=== PATIENT | male | born 1945 | race Caucasian/White ===

== ENCOUNTER 2016-06-20 06:41 | Inpatient (IN) | payer MEDICARE ==
[2016-06-20] VITALS (33 sets, daily range): BP systolic 119–156; BP diastolic 71–114; PULSE 80–116; RESP 16–20; TEMP 98.2–98.8; O2SAT 96–100
[~2016-06-20] VITALS: Ht 188 cm; Wt 121.9 kg
[~2016-06-20 06:41] MED LIST: ACET325S8 PO; AMLO10 PO; ASPI81TA82 PO; ATOR20TA PO; BUPR100T PO; GLIM4 PO; GLUC1000 PO; HYDR25TA35 PO; ISOS60TA PO; METO25 PO; NOVONP2 SQ; PAXI20TA26 PO; PLAV75TA PO; PRIN20TA2 PO
[2016-06-20] MEDS ORDERED: SODIUM CHLOR 0.9% 1000 ML INJ 1,000 ML IV ONE (06:57)
--- NOTE | 2016-06-20 07:11 | PD ---
HPI Chief Complaint: cva Time Seen by Provider: 06:57 Travel History International Travel<30 days: No Contact w/Intl Traveler<30days: No Traveled to known affect area: No History of Present Illness HPI 70 year-old male presents to the emergency department by private transportation the care of his spouse for evaluation of new onset ataxia and vision disturbance. According to the patient he awakened around 5 or 5:30 this morning upon getting out of bed and noticed that his balance was off. Patient is able to walk to get his newspaper and sit down and drink coffee and notices balance was still off and then started to notice that he was having difficulty reading the newspaper. Patient states that he went to bed approximately 7 PM last evening watching TV and fell sleep sometime thereafter. Patient states that he does have issues with his prostate and does frequent to get up during the night does not recall specifically any time frame that he was awake and noticed that he did or did not have similar symptoms. Patient therefore to his knowledge was last normal at 7 PM and appears to be noticing gait disturbance and some visual disturbance as of 5 to 5:30 this morning. states that she sleeps in another J[place] was not aware of him having any kind of issues with his balance until this morning around 5 or 5:30. Patient does have history of hypertension CAD with stent placement is under the care of Dr. Rosas as his aquarist and typed 2 diabetes. Patient does not take any blood thinning agents. No prior history of an irregular heartbeat. No recent injury or fall. No recent febrile illness. Patient denies any chest pain or shortness of breath. There is been no nausea or vomiting. Patient denies any loss of vision or double vision. has not noticed any change in his mentation no facial droop no change in his speech. [facility] Past Medical History Narrative Medical Diabetes, dyslipidemia, hypertension, glaucoma, BPH, alcohol use, no tobacco use , nursing notes reviewed High Cholesterol: Yes Diabetes: Yes ("TYPE 2") Glaucoma: Yes Genitourinary: Yes ("PROSTATE") Hypertension: Yes Respiratory: Yes Past Surgical History Eye Surgery: Yes (CATARACT SURGERY OU) Social History Alcohol Use: Yes (6 pack of beer/week) Tobacco Use: No (quit 1996 after 30 yrs of smoking) Substance Use: No Allergies-Medications (Allergen,Severity, Reaction): Coded Allergies: No Known Allergies (Verified , 06/20/16) Reported Meds & Prescriptions Reported Meds & Active Scripts Active Reported Metoprolol Tartrate 25 Mg Tab 25 Mg PO BID Metformin (Metformin HCl) 500 Mg Tab 1,000 Mg PO BID With a meal Lisinopril 20 Mg Tab 20 Mg PO BID Isosorbide Mononitrate ER (Isosorbide Mononitrate) 60 Mg Tab 60 Mg PO DAILY Novolin N Inj (Insulin Human NPH) 1,000 Unit/10 Ml Vial 40 Units SQ BID Hydralazine (Hydralazine HCl) 25 Mg Tab 25 Mg PO TID Take with a meal Bupropion HCl 100 Mg Tab 100 Mg PO DAILY Atorvastatin (Atorvastatin Calcium) 20 Mg Tab Unknown Dose PO HS Aspirin 81 Mg Tabdr 81 Mg PO DAILY Norvasc (Amlodipine Besylate) 10 Mg Tab 10 Mg PO DAILY Review of Systems Except as stated in HPI: all other systems reviewed are Neg General / Constitutional: No: Fever Eyes: Positive: Blurred Vision, No: Diploplia, Photophobia HENT: No: Headaches, Vertigo, Lightheadedness Cardiovascular: No: Chest Pain or Discomfort, Palpitations, Diaphoresis Respiratory: No: Shortness of Breath Gastrointestinal: No: Nausea, Vomiting, Abdominal Pain Genitourinary: No: Decreased Urinary Output, Flank Pain Musculoskeletal: No: Myalgias, Arthralgias Skin: No Rash Neurologic: Positive: Ataxia, No: Weakness, Dizziness, Syncope, Focal Abnormalities, Coordination Problem, Headache, Change in Mentation, Slurred Speech, Paresthesia Psychiatric: No: Anxiety Hematologic/Lymphatic: No: Lymph Node Enlargement Physical Exam Narrative GENERAL: Well-developed well-nourished male in no acute distress no respiratory distress. GCS 15. SKIN: Warm and dry. HEAD: Atraumatic. Normocephalic. EYES: Pupils equal and round. No scleral icterus. No injection or drainage. ENT: No nasal bleeding or discharge. Mucous membranes pink and moist. NECK: Trachea midline. No JVD. CARDIOVASCULAR: Regular rate and rhythm. RESPIRATORY: No accessory muscle use. Clear to auscultation. Breath sounds equal bilaterally. GASTROINTESTINAL: Abdomen soft, non-tender, nondistended. Hepatic and splenic margins not palpable. MUSCULOSKELETAL: Extremities without clubbing, cyanosis, or edema. No obvious deformities. NEUROLOGICAL: Awake and alert. No obvious cranial nerve deficits. Motor grossly within normal limits. Five out of 5 muscle strength in the arms and legs. No pronator drift. No limb ataxia. Sensory exam grossly intact. DTRs 2 + and equal. Normal speech. PSYCHIATRIC: Appropriate mood and affect; insight and judgment normal. Data Data Last Documented VS Vital Signs Date Time Temp Pulse Resp B/P Pulse Ox O2 Delivery O2 Flow Rate FiO2 06/20/16 07:10 98.8 115 16 155/94 98 Room Air 06/20/16 07:03 21 Orders Cath For Specimen (06/20/16 06:57) Neuro Checks Q2HX12,Q4H (06/20/16 06:57) Nursing Bedside Swallow Assess .ONCE (06/20/16 06:57) Activity Bed Rest (06/20/16 06:57) Diet Npo (06/20/16 Breakfast) Prothrombin Time / Inr (Pt) (06/20/16 06:57) Act Partial Throm Time (Ptt) (06/20/16 06:57) Complete Blood Count With Diff (06/20/16 06:57) Basic Metabolic Panel (Bmp) (06/20/16 06:57) Fibrinogen (06/20/16 06:57) Creatine Kinase (Cpk) (06/20/16 06:57) Troponin I (06/20/16 06:57) Ua Includes Microscopic (06/20/16 06:57) Drug Screen, Random Urine (06/20/16 06:57) Type And Screen (06/20/16 06:57) Ct Brain W/O Iv Contrast(Rout) (06/20/16 ) Electrocardiogram (06/20/16 ) Consult Neurology (06/20/16 06:57) Sodium Chlor 0.9% 1000 Ml Inj (Ns 1000 M (06/20/16 06:57) Blood Glucose (06/20/16 06:57) Ecg Monitoring (06/20/16 06:57) Iv Access Insert/Monitor (06/20/16 06:57) NPO (06/20/16 06:57) Oximetry (06/20/16 06:57) Oxygen Administration (06/20/16 06:57) Resp Oxygen Javon C Titrat 1-4 L (06/20/16 06:57) (Hub Use Only)Inp Phy Cons/Ref (06/20/16 ) Admit Order (Ed Use Only) (06/20/16 ) Weight Inspector / Telemetry (06/20/16 07:40) ^ Saline Lock (06/20/16 07:40) Resp Oxygen Javon C Titrat 1-4 L (06/20/16 ) ^ Notify Dr: Other (06/20/16 07:40) Sodium Chloride 0.9% Flush (Ns Flush) (06/20/16 09:00) Sodium Chloride 0.9% Flush (Ns Flush) (06/20/16 07:45) Consult Cardiology (06/20/16 07:40) Consult Neurology (06/20/16 07:40) Labs Laboratory Tests Test 06/20/16 07:00 White Blood Count 10.7 TH/MM3 Red Blood Count 6.03 MIL/MM3 Hemoglobin 15.7 GM/DL Hematocrit 48.4 % Mean Corpuscular Volume 80.2 FL Mean Corpuscular Hemoglobin 26.1 PG Mean Corpuscular Hemoglobin 32.5 % Concent Red Cell Distribution Width 13.8 % Platelet Count 251 TH/MM3 Mean Platelet Volume 8.1 FL Neutrophils (%) (Auto) 73.3 % Lymphocytes (%) (Auto) 15.5 % Monocytes (%) (Auto) 8.4 % Eosinophils (%) (Auto) 2.3 % Basophils (%) (Auto) 0.5 % Neutrophils # (Auto) 7.8 TH/MM3 Lymphocytes # (Auto) 1.7 TH/MM3 Monocytes # (Auto) 0.9 TH/MM3 Eosinophils # (Auto) 0.2 TH/MM3 Basophils # (Auto) 0.1 TH/MM3 CBC Comment DIFF FINAL Differential Comment Prothrombin Time 10.8 SEC Prothromb Time International 1.0 RATIO Ratio Activated Partial 25.0 SEC Thromboplast Time Sodium Level 138 MEQ/L Potassium Level 4.3 MEQ/L Chloride Level 103 MEQ/L Carbon Dioxide Level 24.5 MEQ/L Anion Gap 11 MEQ/L Blood Urea Nitrogen 19 MG/DL Creatinine 1.10 MG/DL Estimat Glomerular Filtration 67 ML/MIN Rate Random Glucose 257 MG/DL Calcium Level 8.7 MG/DL Total Creatine Kinase 218 U/L Troponin I LESS THAN 0.02 NG/ML MDM Medical Decision Making Medical Screen Exam Complete: Yes Emergency Medical Condition: Yes Medical Record Reviewed: Yes Interpretation(s) CT brain w/o: Reading radiologist Dr. Jimenez no acute abnormality chronic white matter changes EKG atrial fibrillation with rapid ventricular response no acute ST elevation or injury pattern change noted PT/aPTT: Values in normal range CBC is automated differential: Values grossly normal range Metabolic panel: Random glucose 257 otherwise denies grossly within normal limits Troponin I: Less than 0.02 Differential Diagnosis CVA, stroke alert, new onset atrial fibrillation, uncontrolled DM Narrative Course stroke alert called; monitored afb w rvr; blood glucose 243 ;BP: hypertensive; NIHSS 0; initial blood pressure 143/114; atrial fibrillation with RVR rate [address] stat; case discussed with on-call neurologist Dr. Lozano in view of unclear onset of symptoms patient is not a candidate for thrombolytics and overall NIH score is 0-0-1. returned [address] CT nihss:1, minimal difficulty reading x [address] Jimenez ---nothing acute, chronic white matter changes Blood pressure at 7:10 AM 155/94 heart rate 1:15 Physician Communication Physician Communication discussed case with neurologist --unknown time of onset--not thrombolytic candidate @ 6:[address] Lozano--unknown onset nihss 0; not thrombolytic candidate @ 7:[address] Jimenez no acute abnormalities chronic white matter changes call placed to [facility] MD microsoft bi consultant @ 7:[address] Joyce discussed with patient's aquarist Dr Staton --requests patient to [facility] as will need MADDIE Diagnosis Primary Impression: CVA (cerebral vascular accident) Qualified Code: I63.9 - Cerebrovascular accident (CVA), unspecified mechanism Additional Impression: New onset a-fib Admitting Information Admitting Physician Requests: Admit Angela Martinez MD Jun 20, 2016 07:10
[2016-06-20 07:14] LABS: AUTOMATED NEUTROPHIL # 7.8 TH/MM3 (1.8-7.7); BASOPHIL # 0.1 TH/MM3 (0-0.2); BASOPHIL % 0.5 % (0.0-2.0); EOSINOPHIL # 0.2 TH/MM3 (0-0.4); EOSINOPHIL % 2.3 % (0.0-4.0); HEMATOCRIT 48.4 % (39.0-51.0); HEMO FLAGS DIFF FINAL; LYMPH % 15.5 % (9.0-44.0); LYMPHOCYTE # 1.7 TH/MM3 (1.0-4.8); MEAN CELL VOLUME 80.2 FL (80.0-100.0); MEAN CORPUSCULAR HEMOGLOBIN 26.1 PG (27.0-34.0); MEAN CORPUSCULAR HGB CONC 32.5 % (32.0-36.0); MONO % 8.4 % (0.0-8.0); NEUT % 73.3 % (16.0-70.0); PLATELET COUNT 251 TH/MM3 (150-450); RED BLOOD COUNT 6.03 MIL/MM3 (4.50-5.90); RED CELL DISTRIBUTION WIDTH 13.8 % (11.6-17.2); WHITE BLOOD COUNT 10.7 TH/MM3 (4.0-11.0)
--- NOTE | 2016-06-20 07:16 | RADHPO ---
EXAM DATE/TIME: 06/20/2016 06:58 [place] COMPARISON: No previous studies available for comparison. INDICATIONS : Stroke alert. Unsteady gait since waking up. RADIATION DOSE: 62.62 CTDIvol (mGy) This report was called by Dr. Jimenez to Dr. Martinez at 7: 14 AM MEDICAL HISTORY : Hypertension. Diabetes mellitus type 2. SURGICAL HISTORY : Bilateral cataract surgery. ENCOUNTER: Initial ACUITY: 1 day PAIN SCALE: 0/10 LOCATION: cranial TECHNIQUE: Multiple contiguous axial images were obtained of the head. Using automated exposure control and adj ustment of the mA and/or kV according to patient size, radiation dose was kept as low as reasonably a chievable to obtain optimal diagnostic quality images. FINDINGS: CEREBRUM: The ventricles are normal for age. No evidence of midline shift, mass lesion, hemorrhage or acute in farction. No extra-axial fluid collections are seen. POSTERIOR FOSSA: The cerebellum and brainstem are intact. The 4th ventricle is midline. The cerebellopontine angle i s unremarkable. EXTRACRANIAL: The visualized portion of the orbits is intact. SKULL: The calvaria is intact. No evidence of skull fracture. CONCLUSION: 1. No acute findings. Chronic white matter ischemic changes. Norbert Jimenez MD on June 20, 2016 at 7:10 Board Certified Radiologist. This report was verified electronically.
[2016-06-20 07:18] LABS: CHLORIDE 103 MEQ/L (98-107); POTASSIUM 4.3 MEQ/L (3.5-5.1); SODIUM (NA) 138 MEQ/L (136-145)
[2016-06-20 07:21] LABS: ANION GAP 11 MEQ/L (5-15); BICARBONATE 24.5 MEQ/L (21.0-32.0)
[2016-06-20 07:22] LABS: BLOOD UREA NITROGEN 19 MG/DL (7-18); PROTHROMBIN TIME - PATIENT 10.8 SEC (9.8-11.6)
[2016-06-20 07:25] LABS: GLOMERULAR FILTRATION RATE 67 ML/MIN (>89)
[2016-06-20 07:28] LABS: CREATINE KINASE 218 U/L (39-308)
[2016-06-20] MEDS ORDERED: SODIUM CHLORIDE 0.9% FLUSH 5 ML FLUSH IVF PRN ×2 (07:45→08:00)
[2016-06-20] MEDS ORDERED: BUPR100T4 PO (07:48)
[2016-06-20] MEDS ORDERED: LISI-515 PO (07:48)
[2016-06-20] MEDS ORDERED: HYDR25TA35 PO (07:48)
[2016-06-20] MEDS ORDERED: AMLO10 PO (07:48)
[2016-06-20] MEDS ORDERED: ASPI1TAB69 PO (07:48)
[2016-06-20] MEDS ORDERED: NOVONP2 SQ (07:48)
[2016-06-20] MEDS ORDERED: METO25TA3 PO (07:48)
[2016-06-20] MEDS ORDERED: ISOS60TA PO (07:48)
[2016-06-20] MEDS ORDERED: ATOR20TA15 PO (07:48)
[2016-06-20] MEDS ORDERED: METF500T PO (07:48)
[2016-06-20] MEDS ORDERED: DILTIAZEM HCL 25 MG/5 ML VIAL IV PUSH ONE (08:00)
[2016-06-20 08:08] LABS: BLOOD, URINE NEG (NEG); KETONE, URINE NEG (NEG); NITRITE,URINE NEG (NEG); PH, URINE 6.5 (5.0-8.5)
[2016-06-20] MEDS: DILTIAZEM INJ 125 MG in SODIUM CHLORIDE 0.9% INJ 100 ML IV SCH ×2 (08:13→19:42)
[2016-06-20 08:24] LABS: GLUCOSE,URINE 1000 OR GREATER mg/dL (NEG)
[2016-06-20 08:25] LABS: URINE COLOR YELLOW (YELLW/STRAW)
[2016-06-20 08:26] LABS: BACTERIA, URINE RARE /hpf; MUCUS URINE FEW /lpf (OCC); SQUAMOUS EPITHELIAL CELL URINE 0-2 /hpf (0-5)
[2016-06-20 08:27] LABS: AMPHETAMINE, URINE NEG (NEG); BARBITURATES, URINE NEG (NEG)
[2016-06-20 08:31] LABS: COCAINE, URINE NEG (NEG)
[2016-06-20] MEDS: METOPROLOL TARTRATE 25 MG TAB PO SCH ×2 (09:00→23:10)
[2016-06-20] MEDS: SODIUM CHLORIDE 0.9% FLUSH 5 ML FLUSH IVF SCH ×2 (09:00→23:11)
[2016-06-20] MEDS: hydrALAZINE HCL 25 MG TAB PO SCH ×3 (09:00→18:00)
[2016-06-20] MEDS: INSULIN HUMAN NPH 1,000 UNITS/10 ML VIAL SQ SCH ×2 (09:00→23:17)
[2016-06-20] MEDS: LISINOPRIL 20 MG TAB PO SCH ×2 (09:00→23:10)
[2016-06-20] MEDS: ISOSORBIDE MONONITRATE 60 MG TAB PO SCH (09:00)
--- NOTE | 2016-06-20 09:33 | EKG ---
Date Performed: 06/20/2016 Time Performed: 07:13:40 PTAGE: 70 years EKG: Atrial fibrillation with rapid ventricular response Inferior infarct - age undetermined Abn ormal ECG PREVIOUS TRACING : 03/19/2015 06.54 Compared to previous tracing, atrial fibrillation has repla juanita Sinus rhythm . DOCTOR: Jose Piña Interpretating Date/Time 06/20/2016 09:31:10
[2016-06-20] MEDS: buPROPion HCL 100 MG TAB PO SCH (09:44)
[2016-06-20] MEDS: metFORMIN HCL 500 MG TAB PO SCH ×2 (09:44→21:00)
[2016-06-20] MEDS: ASPIRIN EC 81 MG TABEC PO SCH (09:44)
[2016-06-20] MEDS: ATORVASTATIN 20 MG TAB PO SCH (09:44)
--- NOTE | 2016-06-20 10:31 | HHI.HP ---
HPI Service [facility] Hospitalists Primary Care Physician Alli Boston MD Admission Diagnosis cva; new onset afrvr Chief Complaint: ataxia with visual disturbance around 5 am Travel History International Travel<30 Days: No Contact w/Intl Traveler <30 Da: No Traveled to Known Affected Are: No History of Present Illness 70 year-old male presented to the emergency department by private transportation the care of his spouse for evaluation of new onset ataxia and vision disturbance. According to the patient he awakened around 5 or 5:30 this morning upon getting out of bed and noticed that his balance was off. Patient is able to walk to get his newspaper and sit down and drink coffee and notices balance was still off and then started to notice that he was having difficulty reading the newspaper. Patient states that he went to bed approximately 7 PM last evening watching TV and fell sleep sometime thereafter. Patient states that he does have issues with his prostate and does frequent to get up during the night does not recall specifically any time frame that he was awake and noticed that he did or did not have similar symptoms. Patient therefore to his knowledge was last normal at 7 PM and appears to be noticing gait disturbance and some visual disturbance as of 5 to 5:30 this morning. states that she sleeps in another room was not aware of him having any kind of issues with his balance until this morning around 5 or 5:30. Patient does have history of hypertension CAD with stent placement is under the care of Dr. Rosas as his slab inspector and typed 2 diabetes. Patient does not take any blood thinning agents except aspirin . No prior history of an irregular heartbeat. No recent injury or fall. No recent febrile illness. Patient denies any chest pain or shortness of breath. There is been no nausea or vomiting. Patient denies any loss of vision or double vision. has not noticed any change in his mentation no facial droop no change in his speech. On er evaluation was found to be in atrial fib with rapid ventricular response and started on cardiazem drip. Patient has lens implants and unable to do MRI neurology want CTA and cardiology wants MADDIE . Review of Systems Cardiovascular: COMPLAINS OF: Palpitations Past Family Social History Past Medical History CAD s/p stents ,insulin dependent diabetes,hyperlipidemia,BPH,glaucoma Past Surgical History stent,cataract Reported Medications nph 70/30 40 units bid metformin 1000 bid metoprolol 25 bid,lisinopril 20 bid, isordil 60,hydralazine 25 tid,bupropion 100 lipitor 20 asa 81 norvasc 10 Allergies: Coded Allergies: No Known Allergies (Verified , 06/20/16) Social History drinks 6 pack q week,former smoker Physical Exam Vital Signs Vital Signs Date Time Temp Pulse Resp B/P Pulse Ox O2 Delivery O2 Flow Rate FiO2 06/20/16 09:20 97 21 06/20/16 09:19 93 16 156/76 97 Room Air 06/20/16 08:49 93 16 148/95 97 Room Air 06/20/16 08:30 103 16 132/89 98 Room Air 06/20/16 08:10 116 16 150/82 98 Room Air 06/20/16 07:35 108 16 154/87 98 Room Air 06/20/16 07:10 98.8 115 16 155/94 98 Room Air 06/20/16 07:10 115 16 98 Room Air 06/20/16 07:10 16 98 Room Air 06/20/16 07:10 98 Room Air 06/20/16 07:03 97 21 06/20/16 07:03 97 21 06/20/16 06:50 116 20 143/114 96 Physical Exam GENERAL: This is a well-nourished, well-developed patient, in no apparent distress. SKIN: No rashes, ecchymoses or lesions. Cool and dry. HEAD: Atraumatic. Normocephalic. No temporal or scalp tenderness. EYES: Pupils equal round and reactive. Extraocular motions intact. No scleral icterus. No injection or drainage. ENT: Nose without bleeding, purulent drainage or septal hematoma. Throat without erythema, tonsillar hypertrophy or exudate. Uvula midline. Airway patent. NECK: Trachea midline. No JVD or lymphadenopathy. Supple, nontender, no meningeal signs. CARDIOVASCULAR: Regular rate and rhythm without murmurs, gallops, or rubs. RESPIRATORY: Clear to auscultation. Breath sounds equal bilaterally. No wheezes , rales, or rhonchi. GASTROINTESTINAL: Abdomen soft, non-tender, nondistended. No hepato-splenomegaly , or palpable masses. No guarding. MUSCULOSKELETAL: Extremities without clubbing, cyanosis, or edema. No joint tenderness, effusion, or edema noted. No calf tenderness. Negative Homans sign bilaterally. NEUROLOGICAL: Awake and alert. Cranial nerves II through XII intact. Motor and sensory grossly within normal limits. Five out of 5 muscle strength in all muscle groups. Normal speech. Improved from er evaluation this am. Laboratory Laboratory Tests Test 06/20/16 06/20/16 07:00 08:00 White Blood Count 10.7 Red Blood Count 6.03 Hemoglobin 15.7 Hematocrit 48.4 Mean Corpuscular Volume 80.2 Mean Corpuscular Hemoglobin 26.1 Mean Corpuscular Hemoglobin 32.5 Concent Red Cell Distribution Width 13.8 Platelet Count 251 Mean Platelet Volume 8.1 Neutrophils (%) (Auto) 73.3 Lymphocytes (%) (Auto) 15.5 Monocytes (%) (Auto) 8.4 Eosinophils (%) (Auto) 2.3 Basophils (%) (Auto) 0.5 Neutrophils # (Auto) 7.8 Lymphocytes # (Auto) 1.7 Monocytes # (Auto) 0.9 Eosinophils # (Auto) 0.2 Basophils # (Auto) 0.1 CBC Comment DIFF FINAL Differential Comment Prothrombin Time 10.8 Prothromb Time International 1.0 Ratio Activated Partial 25.0 Thromboplast Time Fibrinogen 356 Sodium Level 138 Potassium Level 4.3 Chloride Level 103 Carbon Dioxide Level 24.5 Anion Gap 11 Blood Urea Nitrogen 19 Creatinine 1.10 Estimat Glomerular Filtration 67 Rate Random Glucose 257 Calcium Level 8.7 Total Creatine Kinase 218 Troponin I LESS THAN 0.02 Blood Type A POSITIVE Antibody Screen NEGATIVE Urine Color YELLOW Urine Turbidity CLEAR Urine pH 6.5 Urine Specific [place] 1.023 Urine Protein NEG Urine Glucose (UA) 1000 OR GREATER Urine Ketones NEG Urine Occult Blood NEG Urine Nitrite NEG Urine Bilirubin NEG Urine Leukocyte Esterase NEG Urine WBC 3-5 Urine WBC Clumps OCC Urine Squamous Epithelial 0-2 Cells Urine Bacteria RARE Urine Mucus FEW Microscopic Urinalysis Comment Urine Opiates Screen NEG Urine Barbiturates Screen NEG Urine Amphetamines Screen NEG Urine Benzodiazepines Screen NEG Urine Cocaine Screen NEG Urine Cannabinoids Screen NEG Result Diagram: 06/20/16 0700 06/20/16 0700 Imaging Last [address] 06/20/16 0000 Signed Impressions: Service Date/Time: Monday, June 20, 2016 06:58 - CONCLUSION: 1. No acute findings. Chronic white matter ischemic changes. Norbert Jimenez MD Course er -ekg atrail fib with rapid ventricular rate started on cardiazem drip NPO for now Assessment and Plan Problem List: (1) New onset a-fib Status: Acute Plan: on cardiazem drip cardiology on consult requested MADDIE (2) TIA (transient ischemic attack) Status: Acute Plan: most likely TIA vs CVA neurology has seen patient and will start work up unable to get MRI as has implants from detached retina. (3) CAD (coronary artery disease) Status: Chronic Plan: no chest pain continue isorbide (4) Diabetes Status: Chronic Plan: will use sliding scale NPO for now swallow evaluation Assessment and Plan as above further plan as case develops Code Status full Discussed Condition With patient and Physician Certification 2 Midnight Certification Type: Admission for Inpatient Services Order for Inpatient Services The services are ordered in accordance with Medicare regulations or non- Medicare payer requirements, as applicable. In the case of services not specified as inpatient-only, they are appropriately provided as inpatient services in accordance with the 2-midnight benchmark. Estimated LOS (days): 3 3 days is the estimated time the patient will need to remain in the hospital, assuming treatment plan goals are met and no additional complications. Post-Hospital Plan: Not yet determined Pratik Laurent MD Jun 20, 2016 10:31
[2016-06-20] MEDS ORDERED: DEXTROSE 50% IN WATER 50 ML VIAL(D50) IV PUSH PRN (10:45)
[2016-06-20] MEDS ORDERED: GLUCAGON 1 MG/ML VIAL OTHER PRN (10:45)
[2016-06-20] MEDS: INSULIN NovoLIN REGULAR SUPPLEMENTAL SCALE SQ SCH ×3 (11:29→21:00)
[2016-06-20] MEDS ORDERED: HEPARIN 25,000 UNITS/D5W 250ML IV SCH (13:00)
--- NOTE | 2016-06-20 17:16 | MB ---
cc: PATRICIA ORTEGA MD DATE OF CONSULTATION 06/20/2016 REASON FOR CONSULTATION Stroke alert. HISTORY OF PRESENT ILLNESS A 70-year-old male presents to the emergency department at [facility] by private transportation with his for evaluation of acute onset unsteadiness and vision disturbances. According to the patient he was up around 5-5:30 this morning, he noticed that he was off balance and he denies headache, lightheadedness, double vision, slurred speech, disorientation or loss of consciousness, but he states that he was unsteady on his feet and he was unable to read and say the words on the newspaper. He states that he could see the letters but he could not make a sentence. However, the states that he was not slurred to her and she did not notice any face drooping or weakness of an extremity. The patient went to bed approximately at 7 last evening, fell asleep sometime afterward and he typically wakes up several times at night because of his prostate problem. So the last seen normal was 7 p.m. last night but he had this unsteadiness and some visual disturbances with difficulty speech around 5 to 5:30 this morning. Upon arrival to the emergency room, the emergency room doctor's assessment found the neurological assessment unremarkable with an NIH stroke scale of 0. The patient is currently on aspirin. He used to be on Plavix as well for a history of stenting. Of note, the patient was noted to have irregular heart beat on the monitor. New onset of atrial fibrillation with rapid ventricular response was noted. He was started on Cardizem drip. The patient has lens implants and we are unable to do an MRI. CT scan without contrast in the ED was reported with no acute findings but with chronic white matter ischemic changes. REVIEW OF SYSTEMS A 12-point review of systems is negative except for what is stated in the HPI. PAST MEDICAL HISTORY 1. CABG status post stents. 2. Insulin dependent diabetes. 3. Hyperlipidemia. 4. Benign prostatic hypertrophy. 5. Glaucoma. PAST SURGICAL HISTORY Cataract. MEDICATIONS Reported medications: 1. NPH. 2. Metformin. 3. Metoprolol. 4. Lisinopril. 5. Isordil. 6. Hydralazine. 7. Bupropion. 8. Lipitor. 9. Aspirin 81. 10. Norvasc. ALLERGIES No known allergies. SOCIAL HISTORY Drinks six packs per week. Former smoker. Denies recreational drug abuse. PHYSICAL EXAMINATION GENERAL: Well-nourished, overweight person in no apparent distress but anxious with at the bedside. HEENT: Atraumatic, normocephalic. Intact hearing and intact vision. NECK: Trachea in the midline. No carotid bruits. No signs of meningeal irritation. CARDIOVASCULAR: Irregular rate and rhythm in atrial fibrillation. LUNGS: Clear to auscultation. No wheezes. MUSCULOSKELETAL: Extremities without clubbing, cyanosis or edema. Moves all extremities equally. NEUROLOGICAL: Awake, alert, oriented to time, person and place. Intact speech. Intact reading. Intact writing. Intact repetition. Intact naming. Pupils are equally reactive to light. No nystagmus. No diplopia. No visual field defects. No facial asymmetry. Intact facial sensation. The tongue is in the midline. No fasciculations. Intact palate, elevation and uvula is central. Muscle strength 5/5 in all extremities bilaterally and symmetrical. Normal tone. No abdominal movements. Intact sensation bilaterally and symmetrical to superficial touch and pain. Intact finger nose, [id number]. Cerebellar function bilaterally and symmetrical. Reflexes 2+ bilaterally and symmetrical. Plantars are bilateral, downgoing. Stance and gait intact stance. Negative Romberg sign. No ataxia PSYCHIATRIC: Normal mood and behavior. No hallucinations. LABORATORY DATA White blood cell count is 10.7, hemoglobin 15.7, MCV 80.2.INR 1.0. Fibrinogen 356.Sodium level 138, potassium 4.3, anion gap 11. BUN 19, creatinine 1.1. Calcium 8.7. Random glucose 257. Urine tox is negative. IMAGING - Head CT scan without contrast with no acute findings but with chronic white matter changes. IMPRESSION Diagnostic impression: 1. Transient ischemic attack. 2. New onset atrial fibrillation. PLAN 1. Neurological checks q.1h. 2. The patient unable to do MRI because of lens implants. 3. CTA head & CTA neck. 4. Carotid ultrasound. 5. Telemetry. 6. Cardiac echo. 7. Cardiology recommendations are appreciated. 8. Deep venous thrombosis prophylaxis sequential compression devices. - I talked to the nurse who requested neurology opinion regarding cardiology starting Heparinization. There is no clear evidence to contradict neurological recommendations. Thank you for the opportunity to participate in the care of your patient. MD DEB Lanza /12:10 PM /4:47 PM [id number]
--- NOTE | 2016-06-20 20:17 | RADHPO ---
EXAM DATE/TIME: 06/20/2016 18:56 [facility] COMPARISON: No previous studies available for comparison. INDICATIONS : Syncope. MEDICAL HISTORY : Hypercholesterolemia. Chronic obstructive pulmonary disease. Arthritis. Glaucoma. CAD. Diabetes. SURGICAL HISTORY : Coronary artery stent. Left femoral stent. ENCOUNTER: Initial ACUITY: 1 day PAIN SCORE: 2/10 LOCATION: Bilateral neck PEAK SYSTOLIC VELOCITIES (cm/sec): ICA/CCA RATIO: Right: 0.7 Left: 1.6 ICA: Right: 61 Left: 94 CCA: Right: 89 Left: 58 ECA: Right: 98 Left: 91 VERTEBRAL: Right: 23 antegrade Left: 46 antegrade Elevated flow velocities and ICA/CCA ratios have been found to correlate with increased degrees of vessel stenosis, calculated as percentage of diameter relative to a normal segment of distal ICA/CCA FINDINGS: RIGHT CAROTID: No significant stenosis is visualized. The waveforms are within normal limits. LEFT CAROTID: No significant stenosis is visualized. The waveforms are within normal limits. VERTEBRAL ARTERIES: Antegrade flow is seen in both vertebral arteries. MISCELLANEOUS: None. CONCLUSION: 1. Urzh-zh-ufzfqkfw plaque noted. No hemodynamically significant stenosis is identified on ultrasound . Norbert Jimenez MD on June 20, 2016 at 20:13 Board Certified Radiologist. This report was verified electronically.
[2016-06-20] MEDS ORDERED: IOHEXOL 350 MG/ML 10 ML VIAL (for RAD DIAG) IV ONE (21:48)
[2016-06-20 22:33] LABS: APTT (PATIENT) 132.2 SEC (24.3-30.1)
--- NOTE | 2016-06-20 22:37 | RADHPO ---
EXAM DATE/TIME: 06/20/2016 20:21 [facility] COMPARISON: No previous studies available for comparison. INDICATIONS : Stroke IV CONTRAST: 100 cc Omnipaque 350 (iohexol) IV RADIATION DOSE: 42.94 CTDIvol (mGy) MEDICAL HISTORY : Diabetes mellitus type 2. Hypertension. Chronic obstructive pulmonary disease. SURGICAL HISTORY : None. ENCOUNTER: Initial ACUITY: 1 day PAIN SCALE: 5/10 LOCATION: TECHNIQUE: Volumetric scanning was performed using a multi-row detector CT scanner. The data was post processed with a variety of visualization algorithms including full volume maximum intensity projection, multi -planar sliding thin slab reformation, curved planar reformation, and surface rendering techniques. Using automated exposure control and adjustment of the mA and/or kV according to patient size, radiat ion dose was kept as low as reasonably achievable to obtain optimal diagnostic quality images. FINDINGS: There is excellent visualization of the major intracranial arteries out to the second-order branch ve ssels. There is no evidence for aneurysm, vessel truncation or stenosis, and no evidence for vascula r malformation. CONCLUSION: 1. Examination is within normal limits for age. 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 No discrete aneurysm . Norbert Jimenez MD on June 20, 2016 at 22:32 Board Certified Radiologist. This report was verified electronically.
--- NOTE | 2016-06-20 22:42 | RADHPO ---
EXAM DATE/TIME: 06/20/2016 20:21 This report includes an Addendum and supersedes previous reports for this exam. [facility] COMPARISON: No previous studies available for comparison. INDICATIONS : Stroke IV CONTRAST: 100 cc Omnipaque 350 (iohexol) IV RADIATION DOSE: 42.94 CTDIvol (mGy) ; Combined studies - Brain/Cervical Spine MEDICAL HISTORY : Diabetes mellitus type 2. Hypertension. Chronic obstructive pulmonary disease. SURGICAL HISTORY : None. ENCOUNTER: Initial ACUITY: 1 day PAIN SCALE: 4/10 LOCATION: neck TECHNIQUE: Volumetric scanning was performed using a multirow detector CT scanner. The data was post processed with a variety of visualization algorithms including full-volume maximum intensity projection, multip lanar sliding thin-slab reformation, curved-planar reformation, and surface-rendering techniques. Us ing automated exposure control and adjustment of the mA and/or kV according to patient size, radiatio n dose was kept as low as reasonably achievable to obtain optimal diagnostic quality images. FINDINGS: The great vessel origins are patent. Both common carotid arteries are patent. There is moderate plaqu e around the left carotid bifurcation but without evidence for hemodynamically significant stenosis o f the left internal carotid artery. There is focal moderate to severe plaque around the right carotid bifurcation a moderate stenosis nick pected, probably around 50%. Remainder of left internal carotid artery and right internal carotid art lavonne are patent within the neck. CONCLUSION: 1. Focal moderate to severe plaque around the right carotid bifurcation with a moderate stenosis susp ected, probably around 50% at the proximal right internal carotid artery. 2. Pijb-de-wknanzog plaque at left carotid bifurcation without significant stenosis. 3. Both common carotid arteries patent. The great vessel origins patent. Norbert Jimenez MD on June 20, 2016 at 22:35 Board Certified Radiologist. This report was verified electronically. ADDENDUM: Review and evaluation of the study with attention to the right reese in bifurcation demonstrates marked irregularity and ulceration of the stenosis with maximal luminal narrowing of 60-70%. Gilmer Nguyen MD on June 22, 2016 at 9:50 Board Certified Radiologist. This report was verified electronically.
[2016-06-21] VITALS (30 sets, daily range): BP systolic 117–162; BP diastolic 75–91; PULSE 63–92; RESP 17–20; TEMP 97.2–98.2; O2SAT 94–99
[2016-06-21 01:52] LABS: APTT (PATIENT) 24.5 SEC (24.3-30.1)
[2016-06-21 06:50] LABS: AUTOMATED NEUTROPHIL # 7.8 TH/MM3 (1.8-7.7); BASOPHIL # 0.1 TH/MM3 (0-0.2); BASOPHIL % 0.5 % (0.0-2.0); EOSINOPHIL # 0.2 TH/MM3 (0-0.4); EOSINOPHIL % 2.2 % (0.0-4.0); HEMATOCRIT 48.4 % (39.0-51.0); HEMO FLAGS DIFF FINAL; LYMPH % 16.9 % (9.0-44.0); LYMPHOCYTE # 1.9 TH/MM3 (1.0-4.8); MEAN CELL VOLUME 80.6 FL (80.0-100.0); MEAN CORPUSCULAR HEMOGLOBIN 26.8 PG (27.0-34.0); MEAN CORPUSCULAR HGB CONC 33.2 % (32.0-36.0); MONO % 11.4 % (0.0-8.0); PLATELET COUNT 259 TH/MM3 (150-450); RED CELL DISTRIBUTION WIDTH 14.6 % (11.6-17.2); WHITE BLOOD COUNT 11.3 TH/MM3 (4.0-11.0)
[2016-06-21 07:09] LABS: BICARBONATE 24.5 MEQ/L (21.0-32.0); POTASSIUM 3.9 MEQ/L (3.5-5.1)
[2016-06-21] MEDS: INSULIN NovoLIN REGULAR SUPPLEMENTAL SCALE SQ SCH ×4 (07:09→21:04)
[2016-06-21] MEDS: ISOSORBIDE MONONITRATE 60 MG TAB PO SCH (08:47)
[2016-06-21] MEDS: buPROPion HCL 100 MG TAB PO SCH (08:48)
[2016-06-21] MEDS: hydrALAZINE HCL 25 MG TAB PO SCH ×3 (08:48→17:31)
[2016-06-21] MEDS: ASPIRIN EC 81 MG TABEC PO SCH (08:48)
[2016-06-21] MEDS: INSULIN HUMAN NPH 1,000 UNITS/10 ML VIAL SQ SCH ×2 (08:48→21:05)
[2016-06-21] MEDS: METOPROLOL TARTRATE 25 MG TAB PO SCH ×2 (08:48→21:03)
[2016-06-21] MEDS: ATORVASTATIN 20 MG TAB PO SCH (08:48)
[2016-06-21] MEDS: LISINOPRIL 20 MG TAB PO SCH ×2 (08:48→21:03)
[2016-06-21] MEDS: metFORMIN HCL 500 MG TAB PO SCH ×2 (08:48→21:03)
[2016-06-21] MEDS: SODIUM CHLORIDE 0.9% FLUSH 5 ML FLUSH IVF SCH ×2 (08:50→21:08)
--- NOTE | 2016-06-21 11:24 | MB ---
cc: SAMUEL SUBRAMANIAN DATE OF CONSULTATION 06/21/2016 INDICATION TIA. Atrial fibrillation. HISTORY OF PRESENT ILLNESS This is a very nice 62-year-old gentleman who I follow in the outpatient setting. He has a history of known heart disease and prior percutaneous intervention, peripheral arterial disease with stent to the left SFA, insulin dependent diabetes, hyperlipidemia, BPH, glaucoma. He was in his usual state of health and at around 5:30 the morning he felt slight imbalance when getting up, going to the kitchen. He sat down to have a coffee and read the newspaper when he noticed that the writing in the newspaper seemed to be in a foreign language. He asked his to take a look at it; she said it was normal. At that point he continued to have the visual disturbance in addition to the gait issues but no motor issues. Denies any chest pain. He came into the emergency department, was felt to have TIA symptoms which ultimately resolved. He was found to be in new onset atrial fibrillation with rapid ventricular response, was initiated on Cardizem drip. Unfortunately, due to lens implants, neurology was not am able to get an MRI. Carotids showed mild disease. Carotid ultrasound showed mild disease. He was transferred over from [place] to the [facility] for consideration of transesophageal echocardiogram. PAST MEDICAL HISTORY 1. Coronary artery disease. 2. Diabetes. 3. Hyperlipidemia. 4. BPH. 5. Glaucoma. 6. PAD. MEDICATIONS See med reconciliation. ALLERGIES None. SOCIAL HISTORY Occasional alcohol use. Denies any tobacco or drug use. REVIEW OF SYSTEMS A 12-point review of systems was performed. Negative unless otherwise noted in the History Of Present Illness. PHYSICAL EXAMINATION VITAL SIGNS: Temperature is 98, pulse 73, blood pressure 134/83 mmHg. GENERAL: Alert and oriented x 3, in no acute distress. HEENT: Exam shows pupils reactive to light and accommodation. Extraocular muscles intact. No elevation in jugular venous distention. No thyromegaly or lymphadenopathy. No carotid bruits. LUNGS: Clear to auscultation bilaterally. CARDIOVASCULAR: Irregularly irregular rhythm without murmurs, rubs or gallops. ABDOMINAL EXAM: Nontender, nondistended. Good bowel sounds. No hepatosplenomegaly. EXTREMITIES: No clubbing, cyanosis or edema. Good peripheral pulses. NEUROLOGIC: Cranial nerves intact. Motor and sensory grossly intact. LABORATORY DATA WBC 11.3, hemoglobin 16.1, platelet count is 259. Sodium 138, potassium 3.9, BUN 15, creatinine is 1.09. Troponin 0.02. ASSESSMENT 1. TIA. 2. New onset atrial fibrillation. 3. Coronary disease, prior percutaneous intervention. 4. PAD. 5. Diabetes. 6. Hypertension. 7. Hyperlipidemia. PLAN Atrial fibrillation is new onset, unclear duration. He is currently on heparin drip in addition to Cardizem drip. Heart rate is controlled. He was sent over from [place] for consideration of transesophageal echocardiogram due to the suggestive TIA symptoms. Unfortunately, MRI we will not be possible due to his lens implants. He was previously on aspirin. He had been on Plavix in the past that was discontinued after a prolonged period of time. He is going to need anticoagulation long-term. He has some upcoming dental work in the near future. We will proceed with transesophageal echocardiogram to determine if he has a left atrial appendage thrombus or any other etiology for cardioembolic stroke. He may even consider direct current cardioversion given this is the first evidence of A-fib and we will see if he can maintain sinus rhythm. MD VERN Herrmann/YOSEPH /8:40 AM /11:12 AM
[2016-06-21] MEDS ORDERED: MISCELLANEOUS NURSING INFORMATION XX PRN (11:30)
--- NOTE | 2016-06-21 11:51 | HHI.PR ---
Subjective Remarks No new complaints. Objective Vitals Vital Signs Date Time Temp Pulse Resp B/P Pulse Ox O2 Delivery O2 Flow Rate FiO2 06/21/16 11:22 96 Nasal Cannula 4.00 06/21/16 09:15 71 06/21/16 08:15 73 06/21/16 08:15 98.2 73 20 134/83 95 06/21/16 07:20 Nasal Cannula 2.00 21 06/21/16 07:00 68 06/21/16 06:00 70 06/21/16 05:00 71 06/21/16 04:00 68 06/21/16 04:00 98.0 76 20 133/91 94 06/21/16 03:00 72 06/21/16 02:00 68 06/21/16 01:00 83 06/21/16 00:00 98.2 91 20 162/85 97 06/21/16 00:00 91 06/21/16 00:00 Nasal Cannula 2.00 06/20/16 23:00 99 06/20/16 22:00 97 06/20/16 21:30 90 06/20/16 21:30 Nasal Cannula 2.00 06/20/16 21:00 98.2 83 18 142/91 96 06/20/16 20:30 92 18 146/84 96 Room Air 06/20/16 20:00 90 18 97 Room Air 06/20/16 20:00 90 18 145/84 Room Air 06/20/16 19:25 96 21 06/20/16 19:00 88 18 149/84 96 Room Air 06/20/16 18:30 86 16 144/86 100 Room Air 06/20/16 18:00 85 16 145/84 98 Room Air 06/20/16 16:30 87 16 137/85 100 Room Air 06/20/16 16:00 92 16 148/101 97 06/20/16 15:30 87 16 131/76 100 Room Air 06/20/16 15:07 88 16 152/88 100 Room Air 06/20/16 14:30 86 16 151/94 97 Room Air 06/20/16 14:00 86 16 133/89 96 Room Air 06/20/16 13:33 90 16 131/80 97 Room Air 06/20/16 13:00 85 16 119/75 97 Room Air 06/20/16 12:30 86 16 135/77 96 Room Air 06/20/16 06/20/16 06/21/16 15:00 23:00 07:00 Intake Total 500 ml 2230 ml Output Total 750 ml 500 ml 850 ml Balance -750 ml 0 ml 1380 ml Intake Oral 500 ml 440 ml IV Total 1663 ml Other 127 ml Output Urine Total 750 ml 500 ml 850 ml # Voids 3 2 Result Diagram: 06/21/16 0505 06/21/16 0505 Imaging Last Impressions Neck CTA 06/20/16 0000 Signed Impressions: Service Date/Time: Monday, June 20, 2016 20:21 - CONCLUSION: 1. Focal moderate to severe plaque around the right carotid bifurcation with a moderate stenosis suspected, probably around 50%% at the proximal right internal carotid artery. 2. Awld-na-eabplhzk plaque at left carotid bifurcation without significant stenosis. 3. Both common carotid arteries patent. The great vessel origins patent. Norbert Jimenez MD Head CTA 06/20/16 0000 Signed Impressions: Service Date/Time: Monday, June 20, 2016 20:21 - CONCLUSION: 1. Examination is within normal limits for age. 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 No discrete aneurysm. Norbert Jimenez MD Head CT 06/20/16 0000 Signed Impressions: Service Date/Time: Monday, June 20, 2016 06:58 - CONCLUSION: 1. No acute findings. Chronic white matter ischemic changes. Norbert Jimenez MD Carotid Artery Ultrasound 06/20/16 0000 Signed Impressions: Service Date/Time: Monday, June 20, 2016 18:56 - CONCLUSION: 1. Xddl-ky-smodmnvk plaque noted. No hemodynamically significant stenosis is identified on ultrasound. Norbert Jimenez MD Objective Remarks GENERAL: This is a well-nourished, well-developed patient, in no apparent distress. CARDIOVASCULAR: Regular rate and rhythm without murmurs, gallops, or rubs. RESPIRATORY: Clear to auscultation. Breath sounds equal bilaterally. No wheezes , rales, or rhonchi. GASTROINTESTINAL: Abdomen soft, non-tender, nondistended. Normal active bowel sounds MUSCULOSKELETAL: Extremities without clubbing, cyanosis, or edema. NEURO: Alert & Oriented x4 to person, place, time, situation. Moves all ext x4 A/P Problem List: (1) TIA (transient ischemic attack) Status: Acute Plan: - comgmt with Neurology - Pt can not have MRI d/t implants from detached retina - CT brain (06/20/16) --> NO acute findings - CTA brain (06/20/16) --> NO acute findings - b/l Carotid US (06/20/16) --> NO hemodynamically significant stenosis - CTA Carotids (06/20/16) --> moderate to severe plaque at right carotid bifurcation - await MADDIE per Cardiology - ASA - continue statin (2) Carotid arterial disease Status: Acute Plan: - CTA Carotids (06/20/16) --> moderate to severe plaque at right carotid bifurcation - Vascular Surgery to evaluate, Dr. Ny (3) New onset a-fib Status: Acute Plan: - metoprolol PO - back in NSR - MADDIE (06/21/16) --> no thombus - Pt cardioverted by Dr. Staton (06/21/16) - Eliquis - Pt cleared for discharge by Cardiology, Dr. Staton (4) CAD (coronary artery disease) Status: Chronic Plan: - no chest pain - ASA, lisinopril, metoprolol, imdur (5) Diabetes Status: Chronic Plan: - SSI Problem Qualifiers (1) Diabetes: Qualified Code: E11.8 - Type 2 diabetes mellitus with complication, with long- term current use of insulin Jethro Joyce DO Jun 21, 2016 11:51
[2016-06-21] MEDS ORDERED: PROPOFOL 200 MG/20 ML AMP IV ONE (11:52)
[2016-06-21 12:42] LABS: APTT (PATIENT) 24.5 SEC (24.3-30.1)
--- NOTE | 2016-06-21 12:52 | ETE ---
Study Study Date:06/21/2016 STUDY CONCLUSIONS SUMMARY - Left ventricle: The cavity size was normal. Wall thickness was normal. Systolic function was mildly reduced by visual assessment. The estimated ejection fraction was in the range of 40% to 45%. Diffuse hypokinesis. - Aortic valve: No evidence of vegetation. Mild regurgitation. - Mitral valve: No evidence of vegetation. - Left atrium: The atrium was mildly dilated. No evidence of thrombus in the atrial cavity or appendage. - Right atrium: The atrium was mildly dilated. No evidence of thrombus in the atrial cavity or appendage. - Tricuspid valve: No evidence of vegetation. Mild regurgitation. - Pulmonic valve: No evidence of vegetation. If LV function is below 40, please consider prescribing an ACEI or ARB or document rationale for non-use. PROCEDURE DATA Consent: The risks, benefits, and alternatives to the procedure were explained to the patient and informed consent was obtained. Procedure: Initial setup. The patient was brought to the laboratory in the fasting state. Intravenous access was obtained. Surface ECG leads and pulse oximetric signals were monitored. Sedation. Conscious sedation was administered by cardiology staff. Transesophageal echocardiography. Topical anesthesia was obtained using viscous lidocaine. A transesophageal probe was inserted by the attending aoc airspace control officer. Image quality was good. Study completion: All IVs inserted during the procedure were removed. The patient tolerated the procedure well. There were no complications. Transesophageal echocardiography. 2D, complete spectral Doppler, and color Doppler. CARDIAC ANATOMY LEFT VENTRICLE: The cavity size was normal. Wall thickness was normal. Systolic function was mildly reduced by visual assessment. The estimated ejection fraction was in the range of 40% to 45%. Diffuse hypokinesis. AORTIC VALVE: Structurally normal valve. Trileaflet; normal thickness leaflets. Cusp separation was normal. No evidence of vegetation. Doppler: Mild regurgitation. Aorta: - There was no atheroma. There was no evidence for dissection. Aortic root: The aortic root was not dilated. Ascending aorta: The ascending aorta was normal in size. Aortic arch: The aortic arch was normal in size. Descending aorta: The descending aorta was normal in size. MITRAL VALVE: Structurally normal valve. Leaflet separation was normal. No evidence of vegetation. Doppler: Trace regurgitation. LEFT ATRIUM: The atrium was mildly dilated. No evidence of thrombus in the atrial cavity or appendage. The appendage was morphologically a left appendage, multilobulated, and of normal size. Emptying velocity was normal. RIGHT VENTRICLE: The cavity size was normal. Wall thickness was normal. Systolic function was normal. PULMONIC VALVE: Structurally normal valve. No evidence of vegetation. TRICUSPID VALVE: Structurally normal valve. Leaflet separation was normal. No evidence of vegetation. Doppler: Mild regurgitation. PULMONARY ARTERY: The main pulmonary artery was normal-sized. RIGHT ATRIUM: The atrium was mildly dilated. No evidence of thrombus in the atrial cavity or appendage. The appendage was morphologically a right appendage. PERICARDIUM: There was no pericardial effusion. DOPPLER MEASUREMENTS ADULT NORMAL Tricuspid valve Regurgitant peak velocity 184 cm/s Peak RV-RA gradient, S 14 mm Hg LEGEND: Mean values are shown as u=mean value. Asterisk (*) campo values outside specified normal range. Prepared and signed by Santiago Staton [id number]
[2016-06-21] MEDS: APIXABAN 5 MG TABLET PO SCH ×2 (13:04→21:06)
--- NOTE | 2016-06-21 17:36 | MB ---
cc: LUCRETIA ZENDEJAS DATE OF CONSULTATION: 06/21/[address] Joyce, internal medicine REASON FOR CONSULTATION TIA, right carotid stenosis. HISTORY OF PRESENT DISEASE: This 70-year-old male presented to the emergency room complaining of a sudden onset of ataxia and disturbance in visual díaz. The patient apparently woke up in the morning where the balance was off. He barely got to the bathroom, came back, had difficulty deciphering the newspaper. He saw the letters but could not interpret them clearly consistent with blood flow issue. He did not have any lateralization that he remembers. No weakness in arm or leg. Denies double vision. By the time he got to the hospital he felt better. There was no facial droop or slurring of speech. The patient has been worked up, was found to be in atrial fibrillation, underwent cardioversion. On the workup he was found to have about 70% right internal carotid artery stenosis with significant calcifications. The question arises about any surgical implications. PAST MEDICAL HISTORY: 1. Hypertension. 2. Diabetes mellitus. 3. Glaucoma. 4. Benign prostatic hypertrophy. PAST SURGICAL HISTORY: 1. Cataract surgery in 2009. SOCIAL HISTORY: The patient has not smoked for the last 20 years, and drinks about a six-pack of beer a week. ALLERGIES: NONE. MEDICATIONS: Can be found on the chart. REVIEW OF SYSTEMS: The patient is doing well now. He is overweight and is not very compliant with his diet, but otherwise doing okay. PHYSICAL EXAMINATION: The patient is a 70 year-old male in no acute distress. HEENT: Normocephalic. No trauma to the head. Pupils equal, round and reactive to light. Extraocular movements intact. No neurologic deficit. Patient's Navneet Coma Scale is 15. NECK: Bilateral carotid pulse, no bruits on my exam. CHEST: Bilateral breath sounds. HEART: Regular rhythm. The patient was in atrial fibrillation but was cardioverted this morning and remains in sinus rhythm. ABDOMEN: Soft, obese. Active bowel sounds, no rebound, no guarding, no masses. EXTREMITIES: The patient has bilateral femoral pulses to palpation, distal pulses only by Doppler. No vascular deficits. No ulcerations. BACK: Grossly normal. NEUROLOGIC: The patient has normal motoric function, bilateral strength, bilateral sensory preservation and deep tendon reflexes. No pathologic reflexes. IMPRESSION AND RECOMMENDATION: I reviewed the laboratory and diagnostic procedures. This gentleman indeed had symptoms of diminished blood flow to the brain consistent with a TIA. The patient has 70% right internal carotid artery stenosis and I have reviewed this with Dr. Nguyen. Based on all of the above, it is clear that the patient had some sort of a neurologic event, whether it was brought on by atrial fibrillation or a carotid related TIA is hard to tell. Nonetheless, the patient has been cardioverted. He is going to go home now. I would not venture to operate on him just after cardioversion. There is no reason to hurry this. Regardless of this, 70% carotid stenosis with a lot of calcific plaque like his, with questionable symptoms should be addressed anyway, so the patient will follow up in my office in about two weeks at which point we are going to decide the time of surgery, even asymptomatic carotid stenosis at 70% above, should be addressed surgically. In this case, I believe this was a related event, but considering he had cardioversion, I would wait with any other therapy. The patient is going to follow up with me and then we will decide on the need for surgery. Thank you for the referral. Lenka MCDERMOTT /4:47 PM /5:25 PM
[2016-06-22] VITALS (11 sets, daily range): BP systolic 136–152; BP diastolic 82–92; PULSE 78–93; RESP 18–20; TEMP 97.9–98.3; O2SAT 96–98
[2016-06-22] MEDS: INSULIN NovoLIN REGULAR SUPPLEMENTAL SCALE SQ SCH (06:24)
--- NOTE | 2016-06-22 08:36 | PD.CARD.PN ---
Subjective Subjective Remarks feels better no events no complaints wants to go home today Objective Medications Active Medications Apixaban (Eliquis) 5 mg BID PO Last administered on 06/21/16t 21:06; Admin Dose 5 MG; Start 06/21/16 at 11:30 Miscellaneous Information 1 UNSCH PRN XX; Start 06/21/16 at 11:30; Stop at 11:29 Propofol (Diprivan 200 Mg/20 ml Inj) 20 mg STK-MED ONCE IV; Start 06/21/16 at 11:52; Stop 06/21/16 at 11:53; Status DC Vital Signs / I&O Vital Signs Date Time Temp Pulse Resp B/P Pulse Ox O2 Delivery O2 Flow Rate FiO2 06/22/16 08:07 98.3 78 20 152/92 96 06/22/16 08:00 78 06/22/16 06:00 81 06/22/16 05:00 80 06/22/16 04:05 Room Air 06/22/16 04:00 97.9 88 18 146/90 98 06/22/16 04:00 82 06/22/16 03:00 80 06/22/16 03:00 89 06/22/16 02:00 80 06/22/16 01:00 89 06/22/16 00:05 Room Air 06/22/16 00:00 88 06/22/16 00:00 98.2 80 18 136/82 98 06/21/16 23:00 87 06/21/16 22:00 88 06/21/16 21:00 87 06/21/16 20:00 90 06/21/16 20:00 97.9 88 18 143/84 98 06/21/16 19:00 92 06/21/16 17:00 80 06/21/16 16:51 Room Air 06/21/16 16:49 97.8 83 17 127/80 97 06/21/16 16:00 80 06/21/16 15:00 78 06/21/16 14:00 75 06/21/16 13:00 71 06/21/16 12:48 69 06/21/16 12:30 97.9 73 18 129/75 96 06/21/16 12:30 73 06/21/16 12:00 69 06/21/16 11:56 97.2 63 17 117/77 99 06/21/16 11:22 96 Nasal Cannula 4.00 06/21/16 11:00 Nasal Cannula 2.00 21 06/21/16 11:00 76 06/21/16 10:00 74 06/21/16 09:15 71 06/21/16 09:00 70 I/O 06/21/16 06/21/16 06/21/16 06/22/16 06/22/16 06/22/16 07:00 15:00 23:00 07:00 15:00 23:00 Intake Total 2230 ml 240 ml Output Total 850 ml Balance 1380 ml 240 ml Intake Oral 440 ml 240 ml IV Total 1663 ml Other 127 ml Output Urine Total 850 ml # Voids 3 Physical Exam GENERAL: SKIN: Warm and dry. HEAD: Normocephalic. EYES: No scleral icterus. No injection or drainage. NECK: Supple, trachea midline. No JVD or lymphadenopathy. CARDIOVASCULAR: Regular rate and rhythm without murmurs, gallops, or rubs. RESPIRATORY: Breath sounds equal bilaterally. No accessory muscle use. GASTROINTESTINAL: Abdomen soft, non-tender, nondistended. MUSCULOSKELETAL: No cyanosis, or edema. BACK: Nontender without obvious deformity. No CVA tenderness. Laboratory Laboratory Tests Test 06/21/16 11:50 Activated Partial 24.5 SEC Thromboplast Time Imaging Last Impressions Neck CTA 06/20/16 0000 Signed Impressions: Service Date/Time: Monday, June 20, 2016 20:21 - CONCLUSION: 1. Focal moderate to severe plaque around the right carotid bifurcation with a moderate stenosis suspected, probably around 50%% at the proximal right internal carotid artery. 2. Qqvn-tb-ykrfxopk plaque at left carotid bifurcation without significant stenosis. 3. Both common carotid arteries patent. The great vessel origins patent. Norbert Jimenez MD Head CTA 06/20/16 0000 Signed Impressions: Service Date/Time: Monday, June 20, 2016 20:21 - CONCLUSION: 1. Examination is within normal limits for age. 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 No discrete aneurysm. Norbert Jimenez MD Head CT 06/20/16 0000 Signed Impressions: Service Date/Time: Monday, June 20, 2016 06:58 - CONCLUSION: 1. No acute findings. Chronic white matter ischemic changes. Norbert Jimenez MD Carotid Artery Ultrasound 06/20/16 0000 Signed Impressions: Service Date/Time: Monday, June 20, 2016 18:56 - CONCLUSION: 1. Zvyv-mx-yvijsifn plaque noted. No hemodynamically significant stenosis is identified on ultrasound. Norbert Jimenez MD Assessment and Plan Assessment and Plan TIA - new onset afib. moderate right internal carotid stenosis. s/p MADDIE with [facility] yesterday. currently NSR. continue anticoagulation. ok for dc from cardio standpoint FU in OPD appreciate vascular surgery input. CTA shows carotid moderate to possibly severe, but that will often over estimate severity. The carotid US ICA/CCA ratio suggests less than 50%. FU with vascular surgery in OPD and may consider CEA as outpatient. Santiago Staton MD Jun 22, 2016 08:36
[2016-06-22] MEDS: metFORMIN HCL 500 MG TAB PO SCH (08:38)
[2016-06-22] MEDS: ATORVASTATIN 20 MG TAB PO SCH (08:38)
[2016-06-22] MEDS: ASPIRIN EC 81 MG TABEC PO SCH (08:38)
[2016-06-22] MEDS: LISINOPRIL 20 MG TAB PO SCH (08:39)
[2016-06-22] MEDS: hydrALAZINE HCL 25 MG TAB PO SCH (08:39)
[2016-06-22] MEDS: METOPROLOL TARTRATE 25 MG TAB PO SCH (08:39)
[2016-06-22] MEDS: buPROPion HCL 100 MG TAB PO SCH (08:39)
[2016-06-22] MEDS: ISOSORBIDE MONONITRATE 60 MG TAB PO SCH (08:39)
[2016-06-22] MEDS: APIXABAN 5 MG TABLET PO SCH (08:39)
[2016-06-22] MEDS: INSULIN HUMAN NPH 1,000 UNITS/10 ML VIAL SQ SCH (08:41)
[2016-06-22] MEDS: SODIUM CHLORIDE 0.9% FLUSH 5 ML FLUSH IVF SCH (08:41)
[2016-06-22] MEDS ORDERED: APIX5TAB PO (10:33)
[2016-06-22] MEDS ORDERED: LIPI20TA PO (10:33)
--- NOTE | 2016-06-22 11:05 | HHI.PR ---
Subjective Remarks No new complaints. NO chest pain or palpitations. Pt is eager for discharge to home. Objective Vitals Vital Signs Date Time Temp Pulse Resp B/P Pulse Ox O2 Delivery O2 Flow Rate FiO2 06/22/16 10:00 93 06/22/16 09:59 96 Room Air 06/22/16 09:00 85 06/22/16 08:07 98.3 78 20 152/92 96 06/22/16 08:00 78 06/22/16 06:00 81 06/22/16 05:00 80 06/22/16 04:05 Room Air 06/22/16 04:00 97.9 88 18 146/90 98 06/22/16 04:00 82 06/22/16 03:00 80 06/22/16 03:00 89 06/22/16 02:00 80 06/22/16 01:00 89 06/22/16 00:05 Room Air 06/22/16 00:00 88 06/22/16 00:00 98.2 80 18 136/82 98 06/21/16 23:00 87 06/21/16 22:00 88 06/21/16 21:00 87 06/21/16 20:00 90 06/21/16 20:00 97.9 88 18 143/84 98 06/21/16 19:00 92 06/21/16 17:00 80 06/21/16 16:51 Room Air 06/21/16 16:49 97.8 83 17 127/80 97 06/21/16 16:00 80 06/21/16 15:00 78 06/21/16 14:00 75 06/21/16 13:00 71 06/21/16 12:48 69 06/21/16 12:30 97.9 73 18 129/75 96 06/21/16 12:30 73 06/21/16 12:00 69 06/21/16 11:56 97.2 63 17 117/77 99 06/21/16 11:22 96 Nasal Cannula 4.00 06/21/16 06/21/16 06/22/16 14:59 22:59 06:59 Intake Total 240 ml Balance 240 ml Intake Oral 240 ml # Voids 3 Result Diagram: 06/21/16 0505 06/21/16 0505 Imaging Last Impressions Neck CTA 06/20/16 0000 Signed Impressions: Service Date/Time: Monday, June 20, 2016 20:21 - CONCLUSION: 1. Focal moderate to severe plaque around the right carotid bifurcation with a moderate stenosis suspected, probably around 50%% at the proximal right internal carotid artery. 2. Hoha-ad-vyyocjen plaque at left carotid bifurcation without significant stenosis. 3. Both common carotid arteries patent. The great vessel origins patent. Norbert Jimenez MD Head CTA 06/20/16 0000 Signed Impressions: Service Date/Time: Monday, June 20, 2016 20:21 - CONCLUSION: 1. Examination is within normal limits for age. 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 Norbert Jimenez MD Head CT 06/20/16 0000 Signed Impressions: Service Date/Time: Monday, June 20, 2016 06:58 - CONCLUSION: 1. No acute findings. Chronic white matter ischemic changes. Norbert Jimenez MD Carotid Artery Ultrasound 06/20/16 0000 Signed Impressions: Service Date/Time: Monday, June 20, 2016 18:56 - CONCLUSION: 1. Zwdi-nx-wcfljwal plaque noted. No hemodynamically significant stenosis is identified on ultrasound. Norbert Jimenez MD Objective Remarks GENERAL: This is a well-nourished, well-developed patient, in no apparent distress. CARDIOVASCULAR: Regular rate and rhythm without murmurs, gallops, or rubs. RESPIRATORY: Clear to auscultation. Breath sounds equal bilaterally. No wheezes , rales, or rhonchi. GASTROINTESTINAL: Abdomen soft, non-tender, nondistended. Normal active bowel sounds MUSCULOSKELETAL: Extremities without clubbing, cyanosis, or edema. NEURO: Alert & Oriented x4 to person, place, time, situation. 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 Renae outpt in 3 weeks - see discharge orders (2) Carotid arterial disease Status: Acute Plan: - CTA Carotids (06/20/16) --> moderate to severe plaque at right carotid bifurcation - f/u with Dr. Ny outpt in 4 weeks (3) New onset a-fib Status: Acute Plan: - metoprolol - back in NSR - MADDIE (06/21/16) --> no thombus, EF 400-45% - Pt cardioverted by Dr. Staton (06/21/16) - Eliquis - Pt cleared for discharge by Cardiology, Dr. Staton - Pt to f/u with Dr. Staton in 2 weeks. (4) CAD (coronary artery disease) Status: Chronic Plan: - no chest pain - ASA, lisinopril, metoprolol, imdur (5) Diabetes Status: Chronic Plan: - continue home regimen Problem Qualifiers (1) Diabetes: Qualified Code: E11.8 - Type 2 diabetes mellitus with complication, with long- term current use of insulin Jethro Joyce DO Jun 22, 2016 11:05
--- NOTE | 2016-06-22 11:13 | HHI.DCPOC ---
Discharge Care Plan Diagnosis: (1) TIA (transient ischemic attack) (2) CAD (coronary artery disease) (3) Diabetes (4) New onset a-fib Goals to Promote Your Health * To prevent worsening of your condition and complications * To maintain your health at the optimal level Directions to Meet Your Goals Take your medications as prescribed Follow your dietary instruction Follow activity as directed Keep your appointments as scheduled Take your immunizations and boosters as scheduled If your symptoms worsen call your PCP, if no PCP go to Urgent Care Center or Emergency Room Smoking is Dangerous to Your Health. Avoid second hand smoke Call the 24-hour hour crisis hotline for domestic abuse at Jethro Joyce DO Jun 22, 2016 11:13
--- NOTE | 2016-06-22 15:37 | EKG ---
Date Performed: 06/22/2016 Time Performed: 05:49:50 PTAGE: 70 years EKG: Sinus rhythm with PAC(s) Consider left atrial abnormality Leftward axis Inferior infarct - age undetermined Later al T wave changes are nonspecific Compared to previous tracing, previously noted atrial fibrillation is no longer present Abnormal ECG PREVIOUS TRACING : 06/20/2016 07.13 DOCTOR: Rich Acuña Interpretating Date/Time 06/22/2016 15:35:49
== END 2016-06-22 11:16 | disposition home or self-care (01) | DRG 69 ==
LOC: PHED 06:41 → PHEDA 07:44 → PHEDH 11:52 → HCIS 21:08
PROVIDERS: ADMIT Hospitalist; ATTEND Hospitalist
DX: G45.9 Transient cerebral ischemic attack, unspecified (principal); E11.8 Type 2 diabetes mellitus with unspecified complications; I48.91 Unspecified atrial fibrillation; I25.810 Atherosclerosis of coronary artery bypass graft(s) without angina pectoris; E78.5 Hyperlipidemia, unspecified; I10 Essential (primary) hypertension; Z95.1 Presence of aortocoronary bypass graft; Z95.5 Presence of coronary angioplasty implant and graft; N40.0 Benign prostatic hyperplasia without lower urinary tract symptoms; R27.0 Ataxia, unspecified; H53.9 Unspecified visual disturbance; Z96.1 Presence of intraocular lens; Z87.891 Personal history of nicotine dependence; Z79.4 Long term (current) use of insulin; R29.701 NIHSS score 1; I73.9 Peripheral vascular disease, unspecified; H40.9 Unspecified glaucoma; Z79.82 Long term (current) use of aspirin
CPT/HCPCS: 70450; 70496; 70498; 76937; 80048; 80307; 81001; 82550; 82948; 84484; 85025; 85384; 85610; 85730; 86850; 86900; 86901; 93005; 93312; 93320; 93325; 93880; J1644; J1815; J7030; Q9967